=== PATIENT | male | born 1985 ===

== ENCOUNTER 2017-10-02 10:31 | Outpatient (CLI) | payer OTHER | END 2017-10-02 10:40 | disposition home or self-care (01) | LOC: LAB 10:31 | DX: J09.X1 Influenza due to identified novel influenza A virus with pneumonia (principal) ==

== ENCOUNTER → 2017-10-02 | Outpatient (CLI) | payer OTHER ==
[~2017-10-02] VITALS: Ht 152.4 cm; Wt 77.1 kg
== END | disposition home or self-care (01) ==
LOC: EDSEX 09:08 → PPHC 09:08
DX: J06.9 Acute upper respiratory infection, unspecified (principal)